=== PATIENT | female | born 1980 | race American Indian/Alaskan Native ===

== ENCOUNTER 2016-09-21 21:12 | Emergency (ER) | payer MEDICAID ==
[2016-09-22 05:52] VITALS: BP 130/88
== END 2016-09-22 07:00 | disposition left against medical advice (07) ==
LOC: ED 21:12
DX: R51 Headache (principal); Z53.21 Procedure and treatment not carried out due to patient leaving prior to being seen by health care provider

== ENCOUNTER 2017-11-14 04:12 | Inpatient (IN) | payer MEDICAID ==
[2017-11-14] MEDS ORDERED: BRETHINE IVP PRN (05:44)
[2017-11-14] MEDS ORDERED: BRETHINE SUB-Q PRN (05:44)
[2017-11-14] MEDS ORDERED: XYLOCAINE 2% INFILTRATI ONE (05:44)
[2017-11-14] MEDS ORDERED: ePHEDrine SULFATE IV PRN (05:44)
[2017-11-14] MEDS ORDERED: NARCAN 0.4 MG/1 ML IV PRN (05:44)
--- NOTE | 2017-11-14 05:51 | History and Physical Report ---
History of Present Illness Date of examination: 11/14/17 Date of admission: 11/14/17 04:28 Chief complaint: contractions History of present illness: Pt is a 37 year old -British female JOSE A 12/05/17 at 37w0d who presents with regular contractions since 2 am and advanced cervical dilation of 7 cm. She denies vaginal bleeding. She experienced SROM at 441am. She has had care at [facility] since 20 wks complicated by late entry to care, h/o 34 wk delivery on weekly progesterone injections, rubella non -immune status, and headache though pt declined Neuro referral. She is GBS negative. Past History Past Medical History: no pertinent history Past Surgical History: D&C (for retained placenta ) Family/Genetic History: cancer Social history: no significant social history - Obstetrical History Expected Date of Delivery: 12/05/17 Actual Gestation: 37 Week(s) 0 Day(s) : 4 Para: 3 Hx # Term Pregnancies: 2 Number of Pregnancies: 1 Spontaneous Abortions: 0 Induced : 0 Number of Living Children: 3 Medications and Allergies Allergies Allergy/AdvReac Type Severity Reaction Status Date / Time No Known Allergies Allergy Verified 07/17/13 12:36 Home Medications Medication Instructions Recorded Confirmed Last Taken Type Doxycycline [Vibramycin] 100 mg PO BID #14 capsule 07/30/13 09/27/15 Unknown Rx Lidocain2.5%/Prilocai2.5% [Emla] 5 gm TP ONCE #1 tube 09/27/15 Unknown Rx Review of Systems All systems: negative - Physical Exam Breasts: Positive: deferred Cardiovascular: Regular rate Lungs: Positive: Clear to auscultation Abdomen: Positive: soft (gravid ) Genitourinary (Female): Positive: normal external genitalia Uterus: Positive: enlarged (gravid ) Extremities: Positive: normal - Obstetrical FHR: category 2 Uterine Contraction Monitor Mode: External Cervical Dilatation: 10 Cervical Effacement Percentage: 100 station: +2 Uterine Contraction Pattern: Regular Uterine Tone Measurement Phase: Resting Uterine Contraction Intensity: Strong/Firm Results All other labs normal. Assessment and Plan A: IUP at 37w0d Active labor H/o labor AMA GBS negative P: Admit to labor and delivery. Routine intrapartum care.
--- NOTE | 2017-11-14 05:53 | Event Note ---
Date: 11/14/17 Pt is refusing any IV fluids, IV meds or labs to be drawn. She will not allow IM pitocin.
--- NOTE | 2017-11-14 05:56 | Procedure Note ---
OB Delivery Note - Delivery Date of Delivery: 11/14/17 Surgeon: ROMAN SAN Estimated blood loss: other (400 mL) - Vaginal Delivery presentation: vertex Delivery position: OA Intrapartum events: precipitous labor- <3hr, mult.variable deceleratio Delivery induction: none Delivery monitor: external FHT, external uterine Route of delivery: Delivery placenta: spontaneous Delivery cord: 3 umbilical vessels Episiotomy: none Delivery laceration: none Anesthesia: none Delivery comments: Pt progressed to complete/complete/+2 and pushed to deliver a viable male over intact perineum via under no anesthesia. Head delivered, quickly followed by shoulders and body. placed on maternal abdomen and bulb suctioned. Delayed cord clamp. then handed to nurse in attendance. Placenta delivered spontaneously (3VC, intact). Vagina and perineum explored. No lacerations noted. Pt refused pitocin. EBL 400 mL. - Infant A at 1 minute: 8 at 5 minutes: 9 Gender: Male (2913g (6lb 7oz) @ 0457 am)
[2017-11-14] MEDS ORDERED: MOTRIN PO PRN (06:00)
[2017-11-14] MEDS ORDERED: LACTATED RINGERS 1,000 ML IV SCH (06:00)
[2017-11-14] MEDS ORDERED: PITOCin/NS 20 UNIT/1000ML DRIP 20 UNITS/1,000 ML BAG IV SCH ×2 (06:00→11:00)
[2017-11-14] MEDS ORDERED: PITOCin/NS 30 UNIT/500ML 30 UNITS/500 ML BAG IV SCH (06:00)
[2017-11-14] MEDS ORDERED: NORCO 5/325 PO PRN (10:30)
[2017-11-14] MEDS ORDERED: TUCKS PAD TP PRN (10:30)
[2017-11-14] MEDS ORDERED: TYLENOL PO PRN (10:30)
[2017-11-14] MEDS ORDERED: DERMOPLAST TP PRN (10:30)
[2017-11-14] MEDS ORDERED: LANSINOH TP PRN ×2 (10:30→11:00)
[2017-11-14] MEDS ORDERED: BENADRYL PO PRN (10:30)
[2017-11-14] MEDS ORDERED: SODIUM CHLORIDE FLUSH SYRINGE 10 ML IV PRN (11:00)
[2017-11-14] MEDS ORDERED: DULCOLAX PR PRN (11:00)
[2017-11-14] MEDS ORDERED: ZOFRAN IV PRN (11:00)
[2017-11-14] MEDS ORDERED: PHENERGAN PO PRN (11:00)
[2017-11-14] MEDS ORDERED: PHENERGAN PR PRN (11:00)
[2017-11-14] MEDS: MOTRIN PO SCH ×2 (12:33→18:56)
[2017-11-14] MEDS ORDERED: MILK OF MAGNESIA PO PRN (22:00)
[2017-11-14] MEDS ORDERED: MINERAL OIL PO PRN (22:00)
[2017-11-15] MEDS: MOTRIN PO SCH ×4 (00:08→23:59)
[2017-11-15] MEDS ORDERED: BOOSTRIX IM ONE (06:00)
--- NOTE | 2017-11-15 08:22 | Progress Note ---
Assessment and Plan A/P PPD1 doing well declines IV and labs continue PP orders Subjective - Subjective Date of service: 11/15/17 Principal diagnosis: Patient reports: appetite normal, voiding normally, pain well controlled, flatus , ambulating normally : doing well Objective - Vital Signs Latest vital signs: Vital Signs Temp Pulse Resp BP Pulse Ox 11/15/17 05:54 18 11/15/17 00:37 98.2 F 69 18 95/52 96 11/15/17 00:08 18 11/14/17 20:39 18 11/14/17 20:18 98.4 F 18 11/14/17 20:12 98.4 F 77 18 102/66 98 11/14/17 16:23 98.3 F 71 18 108/67 99 Intake and Output 11/14/17 11/15/17 11/15/17 23:59 07:59 15:59 Intake Total 240 Balance 240 Intake: Oral 240 Other: Total, Intake Amount 240 - Exam Breasts: Present: normal Cardiovascular: Present: Regular rate, Normal S1 Lungs: Present: Clear to auscultation, Normal air movement Abdomen: Present: normal appearance, normal bowel sounds. Absent: distention, tenderness, guarding Vulva: both: normal Uterus: Present: normal, firm, fundal height below umbilicus. Absent: bogginess , tenderness Extremities: Present: normal Deep Tendon Reflex Grade: Normal +2
--- NOTE | 2017-11-15 09:02 | Progress Note ---
Assessment and Plan A: PP Day 1 P: D/C in am Subjective - Subjective Date of service: 11/15/17 Principal diagnosis: Patient reports: appetite normal, voiding normally, pain well controlled, flatus , ambulating normally : doing well Objective - Vital Signs Latest vital signs: Vital Signs Temp Pulse Resp BP Pulse Ox 11/15/17 05:54 18 11/15/17 00:37 98.2 F 69 18 95/52 96 11/15/17 00:08 18 11/14/17 20:39 18 11/14/17 20:18 98.4 F 18 11/14/17 20:12 98.4 F 77 18 102/66 98 11/14/17 16:23 98.3 F 71 18 108/67 99 Intake and Output 11/14/17 11/15/17 11/15/17 22:59 06:59 14:59 Intake Total 240 Balance 240 Intake: Oral 240 Other: Total, Intake Amount 240 - Exam Breasts: Present: deferred Abdomen: Present: normal appearance Uterus: Present: normal, firm, fundal height below umbilicus. Absent: bogginess , tenderness Extremities: Present: normal
[2017-11-15] MEDS: PRENATAL VITAMIN PO SCH (10:15)
[2017-11-15] MEDS ORDERED: M-M-R II VACCINE SUB-Q ONE (11:00)
--- NOTE | 2017-11-15 22:35 | Discharge Summary ---
Providers - Providers Date of Admission: 11/14/17 04:28 Date of discharge: 11/16/17 Attending physician: ROMAN SAN Primary care physician: ROMAN SAN Hospitalization Reason for admission: active labor Delivery: Episiotomy: none Laceration: none Other procedures: none complications: none Discharge diagnosis: IUP at term delivered baby: male Hospital course: Patient delivered viable infant. She refused all labs and blood draws. She did well. discharged home. stable. vss. Condition at discharge: Good Disposition: DC-01 TO HOME OR SELFCARE Plan - Provider Discharge Summary Additional instructions: [] Smoking cessation referral if applicable(refer to patient education folder for contact #) [] Refer to [facility] Booklet Call your doctor immediately for: * Fever > 100.5 * Heavy vaginal bleeding ( >1 pad per hour) * Severe persistent headache * Shortness of breath * Reddened, hot, painful area to leg or breast * Drainage or odor from incision. * Keep incision clean and dry at all times and follow doctor's instructions regarding bathing/showering - Follow up plan Follow up: ROMAN SAN MD [Primary Care Provider] - 7 Days
[2017-11-16] MEDS: MOTRIN PO SCH (05:37)
--- NOTE | 2017-11-16 07:37 | Progress Note ---
Assessment and Plan A/P PPD2 doing well declines IV and labs d/c home Subjective - Subjective Date of service: 11/16/17 Principal diagnosis: Patient reports: appetite normal, voiding normally, pain well controlled, flatus , ambulating normally : doing well Objective - Vital Signs Latest vital signs: Vital Signs Temp Pulse Resp BP Pulse Ox 11/16/17 05:37 18 11/15/17 23:59 18 11/15/17 16:05 69 99 11/15/17 16:04 98.4 F 75 18 109/67 99 11/15/17 12:06 80 100 11/15/17 12:05 98.3 F 81 18 105/63 100 11/15/17 08:34 85 99 Intake and Output 11/15/17 11/15/17 11/16/17 15:59 23:59 07:59 Intake Total 720 Output Total 3 Balance 717 Intake: Oral 720 Output: Urine 3 Void 3 Other: Total, Intake Amount 720 Total, Output Amount 3 # Voids Void 3 - Exam Breasts: Present: normal Cardiovascular: Present: Regular rate, Normal S1 Lungs: Present: Clear to auscultation, Normal air movement Abdomen: Present: normal appearance, soft, normal bowel sounds. Absent: distention, tenderness, guarding Vulva: both: normal Uterus: Present: normal, firm, fundal height below umbilicus. Absent: bogginess , tenderness Extremities: Present: normal Deep Tendon Reflex Grade: Normal +2
[2017-11-16 10:00] VITALS: BP 108/78
[2017-11-16] MEDS: PRENATAL VITAMIN PO SCH (11:02)
== END 2017-11-16 15:15 | disposition home or self-care (01) | DRG 775 ==
LOC: TRG 04:12 → LD 04:28 → OB 09:59
PROVIDERS: ADMIT Obstetrics & Gynecology; ATTEND Obstetrics & Gynecology
PROC: 10E0XZZ Delivery of Products of Conception, External Approach (ICD-10-PCS; principal; 2017-11-14)
DX: O62.3 Precipitate labor (principal); O76 Abnormality in fetal heart rate and rhythm complicating labor and delivery; Z3A.37 37 weeks gestation of pregnancy; Z37.0 Single live birth
CPT/HCPCS: 99211; A6250; G0463; J2590

== ENCOUNTER 2018-12-27 19:15 | Emergency (ER) | payer MEDICAID ==
--- NOTE | 2018-12-27 19:39 | Emergency Department Report ---
Blank Doc - Documentation Documentation: This is a 38-year-old female that presents with Chest pain and left arm tingling and numbness sensation. This initial assessment/diagnostic orders/clinical plan/treatment(s) is/are subject to change based on patient's health status, clinical progression and re- assessment by fellow clinical providers in the ED. Further treatment and workup at subsequent clinical providers discretion. Patient/guardians urged not to elope from the ED MAIN ED for further evaluation and treatment 2- labs 3- EKG 4- CXR
[2018-12-27 20:26] LABS: Basophils % (Auto) 0.7 % (0.0-1.8); Eosinophils % (Auto) 0.4 % (0.0-4.3); Hematocrit 41.3 % (30.3-42.9); Hemoglobin 13.5 gm/dl (10.1-14.3); Lymphocytes # (Auto) 1.3 K/mm3 (1.2-5.4); Lymphocytes % (Auto) 18.4 % (13.4-35.0); Mean Corpuscular HGB Conc 33 % (30-34); Mean Corpuscular Volume 85 fl (79-97); Monocytes # (Auto) 0.2 K/mm3 (0.0-0.8); Monocytes % (Auto) 3.2 % (0.0-7.3); Platelet Count 276 K/mm3 (140-440); Red Blood Count 4.84 M/mm3 (3.65-5.03); Red Cell Distribution Width 13.7 % (13.2-15.2)
[2018-12-27 20:36] LABS: INR 0.94 (0.87-1.13)
[2018-12-27 20:37] LABS: Partial Thromboplastin Time 39.9 Sec. (24.2-36.6)
[2018-12-27 20:53] LABS: Alanine Aminotransferase 23 units/L (7-56); Albumin 4.3 g/dL (3.9-5); BUN/Creatinine Ratio 23; Blood Urea Nitrogen 9 mg/dL (7-17); Calcium 9.3 mg/dL (8.4-10.2); Hemolysis Index 4
[2018-12-27] MEDS ORDERED: REGLAN IV ONE (22:13)
[2018-12-27] MEDS ORDERED: XYLOCAINE TOPICAL 4% TP ONE (22:13)
[2018-12-27] MEDS ORDERED: MAGNESIUM SULFATE 2GM/50ML 2 GM/50 ML BAG IV ONE (22:13)
[2018-12-27] MEDS ORDERED: SOLU-Medrol IV ONE (22:13)
--- NOTE | 2018-12-27 22:13 | Emergency Department Report ---
<CARISA CRAIG - Last Filed: 12/28/18 01:48> ED General Adult HPI - General Chief complaint: Chest Pain Stated complaint: CHEST PAIN NUMBNESS TINGLING NAUSEA WEAKNESS Time Seen by Provider: 12/27/18 19:37 Source: patient, RN notes reviewed Mode of arrival: Ambulatory Limitations: No Limitations - History of Present Illness Initial comments: This is a 38-year-old female. The patient is not known to this provider previously. The patient endorses a history of seasonal allergies. The patient presents to the emergency room with multiple complaints. The patient's first complaint is headache. The headache is frontal. The headache is present since 7:00 this morning. The headache is intermittent. It is described as achy and dull. The headache does not reach maximal intensity within 1 hour of onset. It is not the most intense headache of her life. There is no vomiting. There is no loss of vision. There is no sore throat. Patient reports getting frequent headaches. She reports getting enough sleep each nigh t, at least 6-7 hours. She reports having her vision checked within the past couple months. She reports being compliant with corrective contact lenses. She does not report excessive cell phone use. Her next complaint is bilateral upper extremity tingling and numbness, most prominent on the left upper extremity. The tingling is intermittent. It starts from the mid bicep and radiates distally. It is intermittent. It does not have exacerbating or relieving factors. The tingling is also present on the right upper extremity. It is intermittent. It is less pronounced than on the left upper extremity. There is no midline neck pain. There is no saddle anesthesia. There is no bladder or bowel retention or incontinence. The patient also endorses bilateral nontraumatic shoulder pressure and pain. The pain is achy, increases with palpation, range of motion, and it decreases with rest. she also endorses resolved chest pressure. The chest pressure was at 8:00 in the morning. It lasted for a few minutes. It did not radiate to the back, arms and neck. There is no vomiting. There is no diaphoresis. There is no exertional shortness of breath. The patient denies recent aspirin use. The patient denies DVT, pulmonary embolus risk factors. -: Gradual, Sudden Location: head, chest, left, right, upper extremity Radiation: extremity Severity scale (0 -10): 5 Quality: aching, other Consistency: other Improves with: other Worsens with: other - Related Data Previous Rx's Medication Instructions Recorded Last Taken Type DOXYCYCLINE Hyclate [Vibramycin] 100 mg PO BID #14 capsule 07/30/13 Unknown Rx Lidocain2.5%/Prilocai2.5% [Emla] 5 gm TP ONCE #1 tube 09/27/15 Unknown Rx Ibuprofen [Motrin] 600 mg PO Q8H PRN #30 tablet 11/16/17 Unknown Rx Acetaminophen [Non-Aspirin Extra 500 mg PO Q6HR PRN #30 tablet 12/28/18 Unknown Rx Strength] Butalb/Acetaminophen/Caffeine 1 cap PO Q6HR PRN #15 cap 12/28/18 Unknown Rx [Fioricet 50-300-40 mg CAP] Fluticasone [Flonase] 1 spray NS QDAY #1 bottle 12/28/18 Unknown Rx Ibuprofen [Motrin] 600 mg PO Q8H PRN #30 tablet 12/28/18 Unknown Rx Pseudoephedrine ER [Sudafed 12 Hr] 120 mg PO BID PRN #20 tablet.er 12/28/18 Unknown Rx Allergies Allergy/AdvReac Type Severity Reaction Status Date / Time No Known Allergies Allergy Verified 07/17/13 12:36 ED Review of Systems Constitutional: malaise. denies: fever Eyes: denies: eye discharge ENT: denies: epistaxis Respiratory: denies: cough Cardiovascular: chest pain Gastrointestinal: denies: vomiting Genitourinary: denies: dysuria Musculoskeletal: arthralgia, myalgia Skin: denies: lesions Neurological: weakness, paresthesias Psychiatric: anxiety ED Past Medical Hx - Past Medical History Hx Hypertension: No Hx Heart Attack/AMI: No Hx Congestive Heart Failure: No Hx Diabetes: No Hx Deep Vein Thrombosis: No Hx Pulmonary Embolism: No Hx GERD: No Hx Liver Disease: No Hx Renal Disease: No Hx of Cancer: No Hx Sickle Cell Disease: No Hx Arthritis: No Hx Headaches / Migraines: Yes Hx Seizures: No Hx Kidney Stones: No Hx Psychiatric Treatment: No Hx Asthma: No Hx COPD: No Hx Dementia: No Hx HIV: No - Surgical History Hx Coronary Stent: No Hx Open Heart Surgery: No Hx Pacemaker: No Hx Internal Defibrillator: No Hx Cholecystectomy: No Hx Appendectomy: No Hx Breast Surgery: No Additional Surgical History: D/C- 2012 - Social History Smoking Status: Never Smoker Substance Use Type: Alcohol - Medications Home Medications: Home Medications Medication Instructions Recorded Confirmed Last Taken Type DOXYCYCLINE Hyclate [Vibramycin] 100 mg PO BID #14 capsule 07/30/13 11/14/17 Unknown Rx Lidocain2.5%/Prilocai2.5% [Emla] 5 gm TP ONCE #1 tube 09/27/15 11/14/17 Unknown Rx Ibuprofen [Motrin] 600 mg PO Q8H PRN #30 tablet 11/16/17 Unknown Rx Acetaminophen [Non-Aspirin Extra 500 mg PO Q6HR PRN #30 tablet 12/28/18 Unknown Rx Strength] Butalb/Acetaminophen/Caffeine 1 cap PO Q6HR PRN #15 cap 12/28/18 Unknown Rx [Fioricet 50-300-40 mg CAP] Fluticasone [Flonase] 1 spray NS QDAY #1 bottle 12/28/18 Unknown Rx Ibuprofen [Motrin] 600 mg PO Q8H PRN #30 tablet 12/28/18 Unknown Rx Pseudoephedrine ER [Sudafed 12 Hr] 120 mg PO BID PRN #20 tablet.er 12/28/18 Unknown Rx ED Physical Exam - General Limitations: No Limitations General appearance: alert, in no apparent distress - Head Head exam: Present: atraumatic, normocephalic - Eye Eye exam: Present: normal appearance, PERRL, EOMI, other (visual acuity intact to finger counting, color perception, reading at a close distance). Absent: nystagmus - ENT ENT exam: Present: normal exam, normal orophraynx, mucous membranes moist, normal external ear exam - Neck Neck exam: Present: normal inspection, full ROM. Absent: tenderness, meningismus - Respiratory Respiratory exam: Present: normal lung sounds bilaterally. Absent: respiratory distress - Cardiovascular Cardiovascular Exam: Present: regular rate, normal rhythm, normal heart sounds. Absent: bradycardia, tachycardia, irregular rhythm, systolic murmur, diastolic murmur, rubs, gallop - GI/Abdominal GI/Abdominal exam: Present: soft. Absent: distended, tenderness, guarding, rebound, rigid, pulsatile mass - Extremities Exam Extremities exam: Present: normal inspection, full ROM, other (2+ pulses noted in the bilateral upper, lower extremities. Compartments soft. No long bony tenderness. The pelvis is stable.). Absent: pedal edema, joint swelling, calf tenderness - Back Exam Back exam: Present: normal inspection, full ROM. Absent: tenderness, CVA tenderness (R), CVA tenderness (L), paraspinal tenderness, vertebral tenderness - Neurological Exam Neurological exam: Present: alert, oriented X3, normal gait (there is no pass pointing. There is normal [id number]. There is a negative pronator drift.), other (Extraocular movements intact. Tongue midline. No facial droop. Facial sensation intact to light touch in the V1, V2, V3 distribution bilaterally. 5 and 5 strength in 4 extremities.. Sensation is intact to light touch in 4 extremities.). Absent: motor sensory deficit - Psychiatric Psychiatric exam: Present: anxious - Skin Skin exam: Present: warm, dry, intact, normal color. Absent: rash ED Course - Reevaluation(s) Reevaluation #1: 12/28/18 00:40 Differential diagnosis, including but not limited to: GERD, gastritis, hiatal hernia, pneumonia, peripheral neuropathy, multiple sclerosis, intracranial mass lesion, fibromyalgia, mixed connective tissue disorder, acute coronary syndrome, conversion disorder, myositis Assessment and plan: 38-year-old female with multiple complaints. In terms of the patient's chest discomfort, troponin is negative 2, not tachycardic, not hypoxic, low risk by well's criteria, low risk by heart score, low risk by PAWEL score, perc negative Has equal pulses in the upper, lower extremities, and has an unremarkable x-ray of the chest. Aortic disease is unlikely. Nonspecific T wave pseudo normalization is appreciated in V2 and V3, may be related to lead placement, may be related to juvenile T-wave inversion versus high left ventricular voltage. The patient may follow-up with an outpatient anesthesiology crna for her incidental EKG abnormalities, and for her complaint of chest pain. In terms of the patient's headache, the patient has a Juan Diego Coma Scale of 15, with an 9 score of 0. She walks with a steady gait. She has no focal motor or sensory deficits on my examination. Her history and physical was not consistent with subarachnoid hemorrhage, ischemic stroke, hemorrhagic stroke, or cervical cord compression. Her headache will be treated supportively and symptomatically. We highly doubt significant intracranial lesion, but we will obtain noncontrast CT scan of the brain to exclude large structural lesion. Patient is currently resting comfortably, and her stretcher, and in no acute distress. The patient is medically suitable to follow-up with an outpatient neurology s pecialist, primary care doctor and/or anesthesiology crna for her numerous complaints. Does not have clinical evidence of fracture, dislocation, myositis, compartment syndrome. Has full range of motion in her upper and lower extremities. Reevaluation #2: 12/28/18 01:48 Patient resting comfortably, and in no acute distress. CT scan interpretation is pending. Care is transferred to the overnight physician, Dr. Jami Dooley, to follow up on CT scan brain interpretation, and if negative, as anticipated, discharged to follow-up. ED Medical Decision Making - Lab Data Result diagrams: 12/27/18 20:02 12/27/18 20:02 Vital Signs 12/27/18 12/27/18 12/27/18 19:27 19:28 19:35 Temperature 98.0 F 98.0 F Pulse Rate 86 85 88 Respiratory 18 18 Rate Blood Pressure 140/89 140/89 Blood Pressure [Left] O2 Sat by Pulse 99 99 99 Oximetry 12/27/18 12/27/18 12/27/18 20:30 20:51 21:00 Temperature Pulse Rate 69 77 Respiratory 16 20 Rate Blood Pressure 141/94 134/86 Blood Pressure [Left] O2 Sat by Pulse 100 99 99 Oximetry 12/27/18 12/27/18 12/27/18 21:15 21:30 21:45 Temperature Pulse Rate 77 79 72 Respiratory 15 20 19 Rate Blood Pressure 141/94 142/88 142/88 Blood Pressure [Left] O2 Sat by Pulse 98 99 Oximetry 12/27/18 12/27/18 12/27/18 22:00 22:53 23:00 Temperature Pulse Rate 94 H 86 83 Respiratory 15 15 22 Rate Blood Pressure 143/98 147/92 132/80 Blood Pressure [Left] O2 Sat by Pulse 99 99 98 Oximetry 12/27/18 12/27/18 12/27/18 23:15 23:28 23:30 Temperature Pulse Rate 66 67 72 Respiratory 16 12 18 Rate Blood Pressure 132/80 132/80 Blood Pressure 132/80 [Left] O2 Sat by Pulse 99 99 99 Oximetry 12/27/18 23:45 Temperature Pulse Rate 71 Respiratory 16 Rate Blood Pressure 114/62 Blood Pressure [Left] O2 Sat by Pulse 99 Oximetry Lab Results 12/27/18 12/27/18 12/27/18 Range/Units 20:02 20:02 20:02 WBC 6.8 (4.5-11.0) K/mm3 RBC 4.84 (3.65-5.03) M/mm3 Hgb 13.5 (10.1-14.3) gm/dl Hct 41.3 (30.3-42.9) % MCV 85 (79-97) fl MCH 28 (28-32) pg MCHC 33 (30-34) % RDW 13.7 (13.2-15.2) % Plt Count 276 (140-440) K/mm3 Lymph % (Auto) 18.4 (13.4-35.0) % [place] % (Auto) 3.2 (0.0-7.3) % Eos % (Auto) 0.4 (0.0-4.3) % Baso % (Auto) 0.7 (0.0-1.8) % Lymph # 1.3 (1.2-5.4) K/mm3 [place] # 0.2 (0.0-0.8) K/mm3 Eos # 0.0 (0.0-0.4) K/mm3 Baso # 0.0 (0.0-0.1) K/mm3 Seg Neutrophils % 77.3 H (40.0-70.0) % Seg Neutrophils # 5.3 (1.8-7.7) K/mm3 PT 13.1 (12.2-14.9) Sec. INR 0.94 (0.87-1.13) APTT 39.9 H (24.2-36.6) Sec. Sodium 141 (137-145) mmol/L Potassium 4.1 (3.6-5.0) mmol/L Chloride 104.8 (98-107) mmol/L Carbon Dioxide 23 (22-30) mmol/L Anion Gap 17 mmol/L BUN 9 (7-17) mg/dL Creatinine 0.4 L (0.7-1.2) mg/dL Estimated GFR > 60 ml/min BUN/Creatinine Ratio 23 % Glucose 105 H (65-100) mg/dL Calcium 9.3 (8.4-10.2) mg/dL Total Bilirubin 0.60 (0.1-1.2) mg/dL AST 18 (5-40) units/L ALT 23 (7-56) units/L Alkaline Phosphatase 88 (35-129) units/L Troponin T < 0.010 (0.00-0.029) ng/mL Total Protein 7.9 (6.3-8.2) g/dL Albumin 4.3 (3.9-5) g/dL Albumin/Globulin Ratio 1.2 % HCG, Qual (Negative) 12/27/18 12/27/18 Range/Units 20:02 22:32 WBC (4.5-11.0) K/mm3 RBC (3.65-5.03) M/mm3 Hgb (10.1-14.3) gm/dl Hct (30.3-42.9) % MCV (79-97) fl MCH (28-32) pg MCHC (30-34) % RDW (13.2-15.2) % Plt Count (140-440) K/mm3 Lymph % (Auto) (13.4-35.0) % [place] % (Auto) (0.0-7.3) % Eos % (Auto) (0.0-4.3) % Baso % (Auto) (0.0-1.8) % Lymph # (1.2-5.4) K/mm3 [place] # (0.0-0.8) K/mm3 Eos # (0.0-0.4) K/mm3 Baso # (0.0-0.1) K/mm3 Seg Neutrophils % (40.0-70.0) % Seg Neutrophils # (1.8-7.7) K/mm3 PT (12.2-14.9) Sec. INR (0.87-1.13) APTT (24.2-36.6) Sec. Sodium (137-145) mmol/L Potassium (3.6-5.0) mmol/L Chloride (98-107) mmol/L Carbon Dioxide (22-30) mmol/L Anion Gap mmol/L BUN (7-17) mg/dL Creatinine (0.7-1.2) mg/dL Estimated GFR ml/min BUN/Creatinine Ratio % Glucose (65-100) mg/dL Calcium (8.4-10.2) mg/dL Total Bilirubin (0.1-1.2) mg/dL AST (5-40) units/L ALT (7-56) units/L Alkaline Phosphatase (35-129) units/L Troponin T < 0.010 (0.00-0.029) ng/mL Total Protein (6.3-8.2) g/dL Albumin (3.9-5) g/dL Albumin/Globulin Ratio % HCG, Qual Negative (Negative) - EKG Data 12/28/18 00:43 EKG #1 shows a normal sinus rhythm, 97 bpm, high left ventricular voltage, normal axis, QTC prolonged, T-wave inversion V2, abnormal EKG, not consistent with ST elevation myocardial infarction. Repeat EKG shows pseudo-normalized T-wave V2 and V3, persistent high left ventricular voltage, QTC remains prolonged, this is an abnormal EKG, although not consistent with ST elevation myocardial infarction. - Radiology Data Radiology results: pending, report reviewed, image reviewed X-ray of the chest is interpreted as negative for acute disease ED Disposition Clinical Impression: Headache, Paresthesia and pain of both upper extremities, History of chest pain, Sinusitis Disposition: DC-01 TO HOME OR SELFCARE Is pt being admited?: No Does the pt Need Aspirin: No Condition: Good Instructions: Acute Headache (ED), Sinusitis (ED), Paresthesia (ED) Additional Instructions: Rest, avoid heavy lifting, and avoid strenuous physical activities. Take the pain medications, headache medication as needed/directed. Follow up with a anesthesiology crna for chest discomfort within the next 3-5 days. Local cardiology practices include the following groups: [facility], [facility] Please follow up with the primary care doctor or neurology specialist for complaint of headache and upper extremity tingling within the next 2-3 weeks. Local neurology doctors include the following physicians: Ana Maria Simms, [place] Please return to the emergency room right away with new pain, worsened pain, migration of pain, projectile vomiting, change in mental status, confusion, inability to tolerate liquid feeds, new, worsening or different symptoms not present on the initial ER evaluation. Prescriptions: Butalb/Acetaminophen/Caffeine [Fioricet 50-300-40 mg CAP] 1 cap PO Q6HR PRN #15 cap PRN Reason: Headache Fluticasone [Flonase] 1 spray NS QDAY #1 bottle Ibuprofen [Motrin] 600 mg PO Q8H PRN #30 tablet PRN Reason: Pain Acetaminophen [Non-Aspirin Extra Strength] 500 mg PO Q6HR PRN #30 tablet PRN Reason: Pain , Severe (7-10) Pseudoephedrine ER [Sudafed 12 Hr] 120 mg PO BID PRN #20 tablet.er PRN Reason: Nasal Congestion Referrals: FRANDY BENITEZ MD [Staff Physician] - 3-5 Days INEZ VILLAGRAN MD [Staff Physician] - 3-5 Days [facility], [Provider Group] - 3-5 Days [facility] [Provider Group] - 3-5 Days [facility] [Provider Group] - 3-5 Days <FLORIAN DOOLEY - Last Filed: 12/28/18 02:37> ED Review of Systems ROS: Stated complaint: CHEST PAIN NUMBNESS TINGLING NAUSEA WEAKNESS Other details as noted in HPI ED Course Vital Signs 12/27/18 12/27/18 12/27/18 19:27 19:28 19:35 Temperature 98.0 F 98.0 F Pulse Rate 86 85 88 Respiratory 18 18 Rate Blood Pressure 140/89 140/89 Blood Pressure [Left] O2 Sat by Pulse 99 99 99 Oximetry 12/27/18 12/27/18 12/27/18 20:30 20:51 21:00 Temperature Pulse Rate 69 77 Respiratory 16 20 Rate Blood Pressure 141/94 134/86 Blood Pressure [Left] O2 Sat by Pulse 100 99 99 Oximetry 12/27/18 12/27/18 12/27/18 21:15 21:30 21:45 Temperature Pulse Rate 77 79 72 Respiratory 15 20 19 Rate Blood Pressure 141/94 142/88 142/88 Blood Pressure [Left] O2 Sat by Pulse 98 99 Oximetry 12/27/18 12/27/18 12/27/18 22:00 22:53 23:00 Temperature Pulse Rate 94 H 86 83 Respiratory 15 15 22 Rate Blood Pressure 143/98 147/92 132/80 Blood Pressure [Left] O2 Sat by Pulse 99 99 98 Oximetry 12/27/18 12/27/18 12/27/18 23:15 23:28 23:30 Temperature Pulse Rate 66 67 72 Respiratory 16 12 18 Rate Blood Pressure 132/80 132/80 Blood Pressure 132/80 [Left] O2 Sat by Pulse 99 99 99 Oximetry 12/27/18 12/27/18 12/27/18 23:44 23:45 23:54 Temperature Pulse Rate 76 71 68 Respiratory 15 16 12 Rate Blood Pressure 114/62 114/62 114/62 Blood Pressure [Left] O2 Sat by Pulse 100 99 99 Oximetry 12/28/18 12/28/18 12/28/18 00:00 00:15 01:07 Temperature Pulse Rate 70 69 69 Respiratory 19 16 Rate Blood Pressure 113/60 113/60 128/69 Blood Pressure [Left] O2 Sat by Pulse 99 99 97 Oximetry 12/28/18 12/28/18 12/28/18 01:15 01:30 01:45 Temperature Pulse Rate 66 61 65 Respiratory 18 19 20 Rate Blood Pressure 128/69 112/65 113/60 Blood Pressure [Left] O2 Sat by Pulse 98 98 97 Oximetry 12/28/18 02:01 Temperature Pulse Rate 63 Respiratory 18 Rate Blood Pressure Blood Pressure [Left] O2 Sat by Pulse 98 Oximetry ED Medical Decision Making - Lab Data Result diagrams: 12/27/18 20:02 12/27/18 20:02 - Radiology Data PROCEDURE: CT HEAD/BRAIN WO CON TECHNIQUE: Computerized tomography of the head was performed without contrast material. CT DOSE LENGTH PRODUCT: mGycm HISTORY: headache COMPARISONS: None . FINDINGS: Skull and scalp: Normal . Paranasal sinuses: There is fluid in the paranasal sinuses. . Ventricles and subarachnoid spaces: Normal . Cerebrum: No evidence of hemorrhage, acute infarction or mass . Cerebellum and brainstem: No evidence of hemorrhage, acute infarction or mass . Vasculature: Normal . IMPRESSION: There is sinusitis. There is no intracranial hemorrhage, edema, mass, mass effect or midline shift. . - Medical Decision Making ct shows some mild sinus dz,, decongestants and inhaled nasal steroid prescribed. Critical care attestation.: If time is entered above; I have spent that time in minutes in the direct care of this critically ill patient, excluding procedure time. ED Disposition Time of Disposition: 02:37
--- NOTE | 2018-12-27 22:55 | XRay Report ---
PROCEDURE: XR CHEST ROUTINE 2V TECHNIQUE: PA and lateral chest radiographs were obtained. HISTORY: Chest Pain COMPARISONS: None. FINDINGS: Heart: Upper limits normal. Mediastinum/Vessels: Normal. Lungs/Pleural space: Normal. Bony thorax: No acute osseous abnormality. IMPRESSION: Heart size upper limits normal. Otherwise, no acute finding.. This document is electronically signed by Jazmin Salvador MD., Dec 27 2018 10:54:04 PM ET
[2018-12-28] MEDS ORDERED: FIORICET PO ONE (00:34)
--- NOTE | 2018-12-28 02:09 | Cat Scan Report ---
PROCEDURE: CT HEAD/BRAIN WO CON TECHNIQUE: Computerized tomography of the head was performed without contrast material. CT DOSE LENGTH PRODUCT: mGycm HISTORY: headache COMPARISONS: None . FINDINGS: Skull and scalp: Normal . Paranasal sinuses: There is fluid in the paranasal sinuses. . Ventricles and subarachnoid spaces: Normal . Cerebrum: No evidence of hemorrhage, acute infarction or mass . Cerebellum and brainstem: No evidence of hemorrhage, acute infarction or mass . Vasculature: Normal . IMPRESSION: There is sinusitis. There is no intracranial hemorrhage, edema, mass, mass effect or mid line shift. . This document is electronically signed by Cecilio Benavidez MD., Dec 28 2018 02:08:00 AM ET
[2018-12-28 03:06] VITALS: BP 101/58
== END 2018-12-28 03:15 | disposition home or self-care (01) ==
LOC: ED 19:15
DX: J32.9 Chronic sinusitis, unspecified (principal); G43.909 Migraine, unspecified, not intractable, without status migrainosus; R20.2 Paresthesia of skin; R20.0 Anesthesia of skin; R07.89 Other chest pain
CPT/HCPCS: 36415; 70450; 71046; 80053; 82550; 84484; 84703; 85025; 85610; 85730; 93005; 93010; 96365; 96375; 99285; J2765; J2930; J3475

== ENCOUNTER 2019-10-04 16:20 | Emergency (ER) | payer MEDICAID ==
[2019-10-04 17:12] VITALS: BP 144/94
--- NOTE | 2019-10-04 17:14 | Event Note ---
ED Screening Note Date of service: 10/04/19 Time: 17:10 ED Screening Note: 39 y.o. F. that presents to the ER with vaginal bleeding, abdominal cramps, and lightheadedness. Reports spotting started yesterday and progressed with wipes today. LMP 08/20/19, A0 Currently not wearing a menstrual pad. This initial assessment/diagnostic orders/clinical plan/treatment(s) is/are subject to change based on patients health status, clinical progression and re- assessment by fellow clinical providers in the ED. Further treatment and workup at subsequent clinical providers discretion. Patient/guardian urged not to elope from the ED as their condition may be serious if not clinically assessed and managed. Initial orders include: Labs
[2019-10-04 18:13] LABS: Basophils # (Auto) 0.1 K/mm3 (0.0-0.1); Basophils % (Auto) 0.6 % (0.0-1.8); Eosinophils # (Auto) 0.4 K/mm3 (0.0-0.4); Eosinophils % (Auto) 4.2 % (0.0-4.3); Hematocrit 38.1 % (30.3-42.9); Hemoglobin 12.7 gm/dl (10.1-14.3); Lymphocytes # (Auto) 2.8 K/mm3 (1.2-5.4); Lymphocytes % (Auto) 29.2 % (13.4-35.0); Mean Corpuscular HGB Conc 33 % (30-34); Mean Corpuscular Volume 86 fl (79-97); Monocytes # (Auto) 0.6 K/mm3 (0.0-0.8); Monocytes % (Auto) 6.3 % (0.0-7.3); Platelet Count 256 K/mm3 (140-440); Red Blood Count 4.46 M/mm3 (3.65-5.03); Red Cell Distribution Width 14.3 % (13.2-15.2)
[2019-10-04 19:38] LABS: Bilirubin,Urine NEG (Negative); Blood,Urine MOD (Negative); Color,Urine Yellow (Yellow); Protein,Urine <15 mg/dL mg/dL (Negative); Urobilinogen,Urine < 2.0 mg/dL (<2.0)
--- NOTE | 2019-10-04 20:42 | Emergency Department Report ---
HPI - General Chief Complaint: Abdominal Pain Time Seen by Provider: 10/04/19 17:09 - HPI HPI: Room 37 The patient is a 39-year-old female present with a chief complaint of vaginal bleeding and cramping. Patient states she is in her first trimester and yesterday noted vaginal spotting. Today the patient had lower abdominal cramping in addition to heavier bleeding but did not use maxipads. Patient denies any recent trauma or intercourse. Patient states she felt lightheaded with her cramping. The patient does not have an PLANE TENDER yet for this ED Past Medical Hx - Past Medical History Previous Medical History?: Yes Hx Headaches / Migraines: Yes - Surgical History Past Surgical History?: Yes Additional Surgical History: D/C- 2012 - Family History Family history: no significant - Social History Smoking Status: Never Smoker Substance Use Type: Alcohol (Occasional) - Medications Home Medications: Home Medications Medication Instructions Recorded Confirmed Last Taken Type DOXYCYCLINE Hyclate [Vibramycin] 100 mg PO BID #14 capsule 07/30/13 11/14/17 Unknown Rx Lidocain2.5%/Prilocai2.5% [Emla] 5 gm TP ONCE #1 tube 09/27/15 11/14/17 Unknown Rx Ibuprofen [Motrin] 600 mg PO Q8H PRN #30 tablet 11/16/17 Unknown Rx Acetaminophen [Non-Aspirin Extra 500 mg PO Q6HR PRN #30 tablet 12/28/18 Unknown Rx Strength] Butalb/Acetaminophen/Caffeine 1 cap PO Q6HR PRN #15 cap 12/28/18 Unknown Rx [Fioricet 50-300-40 mg CAP] Fluticasone [Flonase] 1 spray NS QDAY #1 bottle 12/28/18 Unknown Rx Ibuprofen [Motrin] 600 mg PO Q8H PRN #30 tablet 12/28/18 Unknown Rx Pseudoephedrine ER [Sudafed 12 Hr] 120 mg PO BID PRN #20 tablet.er 12/28/18 Unknown Rx ED Review of Systems ROS: Stated complaint: 8WKS, BLEEDING,CRAMPING Other details as noted in HPI Constitutional: no symptoms reported Respiratory: no symptoms reported Endocrine: no symptoms reported Gastrointestinal: abdominal pain Genitourinary: abnormal menses Physical Exam - Physical Exam Vital Signs: Vital Signs 10/04/19 17:00 Temperature 99.0 F Pulse Rate 82 Respiratory 20 Rate Blood Pressure 144/94 O2 Sat by Pulse 100 Oximetry Physical Exam: GENERAL: The patient is well-developed well-nourished female lying on stretcher not appearing to be in acute distress. [] HEENT: Normocephalic. Atraumatic. Extraocular motions are intact. Patient has moist mucous membranes. NECK: Supple. Trachea midline CHEST/LUNGS: Clear to auscultation. There is no respiratory distress noted. HEART/CARDIOVASCULAR: Regular. There is no tachycardia. There is no gallop rub or murmur. ABDOMEN: Abdomen is soft, nontender. Patient has normal bowel sounds. SKIN: There is no rash. There is no edema. There is no diaphoresis. NEURO: The patient is awake, alert, and oriented. The patient is cooperative. The patient has normal speech MUSCULOSKELETAL: There is no evidence of acute injury. ED Course Vital Signs 10/04/19 17:00 Temperature 99.0 F Pulse Rate 82 Respiratory 20 Rate Blood Pressure 144/94 O2 Sat by Pulse 100 Oximetry ED Medical Decision Making - Lab Data Result diagrams: 10/04/19 17:20 Laboratory Tests 10/04/19 10/04/19 10/04/19 17:20 17:20 17:20 WBC 9.7 RBC 4.46 Hgb 12.7 Hct 38.1 MCV 86 MCH 29 MCHC 33 RDW 14.3 Plt Count 256 Lymph % (Auto) 29.2 [place] % (Auto) 6.3 Eos % (Auto) 4.2 Baso % (Auto) 0.6 Lymph # 2.8 [place] # 0.6 Eos # 0.4 Baso # 0.1 Seg Neutrophils % 59.7 Seg Neutrophils # 5.8 HCG, Qual Positive HCG, Quant 1355 H Urine Color Urine Turbidity Urine pH Ur Specific [place] Urine Protein Urine Glucose (UA) Urine Ketones Urine Blood Urine Nitrite Urine Bilirubin Urine Urobilinogen Ur Leukocyte Esterase Urine WBC (Auto) Urine RBC (Auto) U Epithel Cells (Auto) Blood Type 10/04/19 10/04/19 17:20 19:21 WBC RBC Hgb Hct MCV MCH MCHC RDW Plt Count Lymph % (Auto) [place] % (Auto) Eos % (Auto) Baso % (Auto) Lymph # [place] # Eos # Baso # Seg Neutrophils % Seg Neutrophils # HCG, Qual HCG, Quant Urine Color Yellow Urine Turbidity Clear Urine pH 7.0 Ur Specific [place] 1.015 Urine Protein <15 mg/dl Urine Glucose (UA) Neg Urine Ketones Neg Urine Blood Mod Urine Nitrite Neg Urine Bilirubin Neg Urine Urobilinogen < 2.0 Ur Leukocyte Esterase Neg Urine WBC (Auto) 1.0 Urine RBC (Auto) 2.0 U Epithel Cells (Auto) 1.0 Blood Type O POSITIVE - Radiology Data Radiology results: report reviewed (Pelvic ultrasound), image reviewed (Pelvic ultrasound) Findings [facility] [address] [place] [address] Ultrasound Report Signed Patient: CLIFTON MACIAS MR#: [id number] [birth year] Acct:[id number] Age/Sex: 39 / F ADM Date: 10/04/19 Loc: ED Attending Dr: Ordering Physician: KAITLYNN VERDUZCO MD Date of Service: 10/04/19 P rocedure(s): US transvaginal Accession Number(s): [id number] cc: KAITLYNN VERDUZCO MD TRANSABDOMINAL AND TRANSVAGINAL OB PELVIC ULTRASOUND INDICATION / CLINICAL INFORMATION: Vaginal bleeding and abdominal cramping. COMPARISON: None available. FINDINGS: Transabdominal: The uterus measures 7.8 x 5.4 x 5.6 cm. There is a small intrauterine gestational sac with a yolk sac. The left ovary measures 2.5 x 1.9 x 1.4 cm and contains a 1.5 cm simple cyst. The right ovary measures 2.6 x 2.1 x 2.8 cm. There is normal blood flow to both ovaries on Doppler exam. Transvaginal: There is an early intrauterine gestational sac with a yolk sac. Sac size is 5 weeks 3 days. There is a probable pole measuring 5 weeks 5 days. No cardiac activity is identified. There is no evidence of implantation hemorrhage. There is a 1.8 cm simple left ovarian cyst. There is a 2.2 cm complex right ovarian cyst with peripheral blood flow. I see no evidence of an extraovarian mass or free fluid. There is a subcentimeter fibroid in the posterior uterine body. IMPRESSION: 1. Early intrauterine measuring approximately 5 weeks 5 days. There is a probable pole without cardiac activity. A follow-up ultrasound in 7-10 days may be helpful in better documenting viability. 2. 2.2 cm corpus luteal cyst in the right ovary. 1.8 cm simple follicular cyst in the left ovary. 3. Subcentimeter uterine fibroid. Signer Name: Pancho Monaco MD Signed: 10/04/2019 9:00 PM Workstation Name: [id number] Transcribed By: RT Dictated By: Pancho Monaco MD Electronically Authenticated By: Pancho Monaco MD Signed Date/Time: 10/04/192099 DD/ 54 TD/TT: - Differential Diagnosis Threatened , incomplete , spontaneous Critical care attestation.: If time is entered above; I have spent that time in minutes in the direct care of this critically ill patient, excluding procedure time. ED Disposition Clinical Impression: Threatened Disposition: DC-01 TO HOME OR SELFCARE Is pt being admited?: No Does the pt Need Aspirin: No Condition: Stable Instructions: Abdominal Pain (ED), Threatened Miscarriage (ED) Additional Instructions: Return to the emergency department should you develop worsening symptoms, inability to tolerate food or liquids, high fever or any other concerns Referrals: PRIMARY CARE, [Primary Care Provider] - 3-5 Days JAE WARNER MD [Staff Physician] - 3-5 Days (Dr Warner is an PLANE TENDER. Please follow-up with him for further evaluation) Time of Disposition: 21:16
--- NOTE | 2019-10-04 21:04 | Ultrasound Report ---
TRANSABDOMINAL AND TRANSVAGINAL OB PELVIC ULTRASOUND INDICATION / CLINICAL INFORMATION: Vaginal bleeding and abdominal cramping. COMPARISON: None available. FINDINGS: Transabdominal: The uterus measures 7.8 x 5.4 x 5.6 cm. There is a small intrauterine gestational sac with a yolk sac. The left ovary measures 2.5 x 1.9 x 1.4 cm and contains a 1.5 cm simple cyst. The r ight ovary measures 2.6 x 2.1 x 2.8 cm. There is normal blood flow to both ovaries on Doppler exam. Transvaginal: There is an early intrauterine gestational sac with a yolk sac. Sac size is 5 weeks 3 d ays. There is a probable pole measuring 5 weeks 5 days. No cardiac activity is identified. Ther e is no evidence of implantation hemorrhage. There is a 1.8 cm simple left ovarian cyst. There is a 2 .2 cm complex right ovarian cyst with peripheral blood flow. I see no evidence of an extraovarian mas s or free fluid. There is a subcentimeter fibroid in the posterior uterine body. IMPRESSION: 1. Early intrauterine measuring approximately 5 weeks 5 days. There is a probable sandi e without cardiac activity. A follow-up ultrasound in 7-10 days may be helpful in better documenting viability. 2. 2.2 cm corpus luteal cyst in the right ovary. 1.8 cm simple follicular cyst in the left ovary. 3. Subcentimeter uterine fibroid. Signer Name: Pancho Monaco MD Signed: 10/04/2019 9:00 PM Workstation Name: [id number]
== END 2019-10-04 21:22 | disposition home or self-care (01) ==
LOC: ED 16:20
DX: O20.0 Threatened abortion (principal); O26.891 Other specified pregnancy related conditions, first trimester; G43.909 Migraine, unspecified, not intractable, without status migrainosus; Z79.899 Other long term (current) drug therapy; Z3A.01 Less than 8 weeks gestation of pregnancy
CPT/HCPCS: 36415; 76801; 76817; 76830; 81001; 84702; 84703; 85025; 86900; 86901

== ENCOUNTER 2019-10-06 04:00 | Emergency (ER) | payer MEDICAID ==
[2019-10-06 04:09] VITALS: BP 145/94
[2019-10-06 05:52] LABS: Basophils # (Auto) 0.1 K/mm3 (0.0-0.1); Basophils % (Auto) 0.7 % (0.0-1.8); Eosinophils # (Auto) 0.4 K/mm3 (0.0-0.4); Eosinophils % (Auto) 4.3 % (0.0-4.3); Hematocrit 35.7 % (30.3-42.9); Hemoglobin 11.9 gm/dl (10.1-14.3); Lymphocytes # (Auto) 3.6 K/mm3 (1.2-5.4); Lymphocytes % (Auto) 37.8 % (13.4-35.0); Mean Corpuscular HGB Conc 33 % (30-34); Mean Corpuscular Volume 86 fl (79-97); Monocytes # (Auto) 0.7 K/mm3 (0.0-0.8); Platelet Count 255 K/mm3 (140-440); Red Blood Count 4.16 M/mm3 (3.65-5.03); Red Cell Distribution Width 13.9 % (13.2-15.2)
[2019-10-06 10:00] LABS: Bacteria,Urine 1+ /HPF (Negative); Bilirubin,Urine NEG (Negative); Blood,Urine MOD (Negative); Color,Urine Yellow (Yellow); Mucus,Urine 2+ /HPF; Protein,Urine <15 mg/dL mg/dL (Negative); Urobilinogen,Urine < 2.0 mg/dL (<2.0)
--- NOTE | 2019-10-06 10:37 | Emergency Department Report ---
ED HPI - General Chief complaint: Vaginal Bleeding Stated complaint: 5 WKS PREG,VAG BLEEDING AND CRAMPS Time Seen by Provider: 10/06/19 08:40 Source: patient Mode of arrival: Ambulatory Limitations: No Limitations - History of Present Illness Initial comments: This is a 39-year-old female nontoxic, well nourished in appearance, no acute signs of distress presents to the ED with c/o of vaginal bleeding xfew days. Stated goes by about 1 pad in 2 hours. Patient stated was seen a here yesterday and had a US and labs done but vaginal bleeding has increased. Patient denies any abdominal or pelvic pain. Patient denies any vaginal discharge or foul odor. Patient denies any nausea, vomiting, chest pain, shortness of breathe, fever, chills, headache, stiff neck, numbness, tingling. Patient denies any urinary symptoms. Patient denies any allergies or PMH. MD Complaint: vaginal bleeding -: days(s) Radiation: none Severity scale (0 -10): 0 Consistency: constant Improves with: none Worsens with: none Associated symptoms: denies other symptoms. denies: nausea/vomiting, vaginal bleeding, vaginal discharge, abdominal pain, dysuria, headache, vision changes, malaise, dysparuenia, rash, seizure, shortness of breath, syncope, weakness Vaginal bleeding: heavy :: Yes Number of weeks : 5 Pre- care: none - Related Data Previous Rx's Medication Instructions Recorded Last Taken Type DOXYCYCLINE Hyclate [Vibramycin] 100 mg PO BID #14 capsule 07/30/13 Unknown Rx Lidocain2.5%/Prilocai2.5% [Emla] 5 gm TP ONCE #1 tube 09/27/15 Unknown Rx Ibuprofen [Motrin] 600 mg PO Q8H PRN #30 tablet 11/16/17 Unknown Rx Acetaminophen [Non-Aspirin Extra 500 mg PO Q6HR PRN #30 tablet 12/28/18 Unknown Rx Strength] Butalb/Acetaminophen/Caffeine 1 cap PO Q6HR PRN #15 cap 12/28/18 Unknown Rx [Fioricet 50-300-40 mg CAP] Fluticasone [Flonase] 1 spray NS QDAY #1 bottle 12/28/18 Unknown Rx Ibuprofen [Motrin] 600 mg PO Q8H PRN #30 tablet 12/28/18 Unknown Rx Pseudoephedrine ER [Sudafed 12 Hr] 120 mg PO BID PRN #20 tablet.er 12/28/18 Unknown Rx Allergies Allergy/AdvReac Type Severity Reaction Status Date / Time No Known Allergies Allergy Verified 07/17/13 12:36 ED Review of Systems ROS: Stated complaint: 5 WKS PREG,VAG BLEEDING AND CRAMPS Other details as noted in HPI Constitutional: denies: chills, fever Eyes: denies: eye pain, eye discharge, vision change ENT: denies: ear pain, throat pain Respiratory: denies: cough, shortness of breath, wheezing Cardiovascular: denies: chest pain, palpitations Endocrine: no symptoms reported Gastrointestinal: denies: abdominal pain, nausea, diarrhea Genitourinary: abnormal menses. denies: urgency, dysuria, discharge Musculoskeletal: denies: back pain, joint swelling, arthralgia Skin: denies: rash, lesions Neurological: denies: headache, weakness, paresthesias Psychiatric: denies: anxiety, depression Hematological/Lymphatic: denies: easy bleeding, easy bruising ED Past Medical Hx - Past Medical History Previous Medical History?: Yes Hx Hypertension: No Hx Heart Attack/AMI: No Hx Congestive Heart Failure: No Hx Diabetes: No Hx Deep Vein Thrombosis: No Hx Pulmonary Embolism: No Hx GERD: No Hx Liver Disease: No Hx Renal Disease: No Hx Sickle Cell Disease: No Hx Arthritis: No Hx Headaches / Migraines: Yes Hx Seizures: No Hx Kidney Stones: No Hx Psychiatric Treatment: No Hx Asthma: No Hx COPD: No Hx Dementia: No Hx HIV: No - Surgical History Past Surgical History?: Yes Hx Coronary Stent: No Hx Open Heart Surgery: No Hx Pacemaker: No Hx Internal Defibrillator: No Hx Cholecystectomy: No Hx Appendectomy: No Hx Breast Surgery: No Additional Surgical History: D/C- 2012 - Social History Smoking Status: Never Smoker Substance Use Type: None - Medications Home Medications: Home Medications Medication Instructions Recorded Confirmed Last Taken Type DOXYCYCLINE Hyclate [Vibramycin] 100 mg PO BID #14 capsule 07/30/13 11/14/17 Unknown Rx Lidocain2.5%/Prilocai2.5% [Emla] 5 gm TP ONCE #1 tube 09/27/15 11/14/17 Unknown Rx Ibuprofen [Motrin] 600 mg PO Q8H PRN #30 tablet 11/16/17 Unknown Rx Acetaminophen [Non-Aspirin Extra 500 mg PO Q6HR PRN #30 tablet 12/28/18 Unknown Rx Strength] Butalb/Acetaminophen/Caffeine 1 cap PO Q6HR PRN #15 cap 12/28/18 Unknown Rx [Fioricet 50-300-40 mg CAP] Fluticasone [Flonase] 1 spray NS QDAY #1 bottle 12/28/18 Unknown Rx Ibuprofen [Motrin] 600 mg PO Q8H PRN #30 tablet 12/28/18 Unknown Rx Pseudoephedrine ER [Sudafed 12 Hr] 120 mg PO BID PRN #20 tablet.er 12/28/18 Unknown Rx ED Physical Exam - General Limitations: No Limitations General appearance: alert, in no apparent distress - Head Head exam: Present: atraumatic, normocephalic - Neck Neck exam: Present: normal inspection, full ROM. Absent: tenderness, meningismus, lymphadenopathy - GI/Abdominal GI/Abdominal exam: Present: soft, normal bowel sounds. Absent: distended, tenderness, guarding, rebound, rigid, diminished bowel sounds - External exam: Present: normal external exam, other (Options Advisor Sherine croze machine operator present during exam). Absent: erythema, swelling, lesions, lacerations, ecchymosis, bleeding Speculum exam: Present: other (Options Advisor Sherine croze machine operator present during exam). Absent: erythema, vaginal discharge, cervical discharge, vaginal bleeding, foreign body, tissue, laceration Bi-manual exam: Present: normal bi-manual exam, other (Options Advisor Sherine croze machine operator present during exam). Absent: cervical motion tendernes, adnexal tenderness, adnexal mass, uterine enlargement, uterine tenderness - Extremities Exam Extremities exam: Present: normal inspection, full ROM, normal capillary refill. Absent: tenderness - Back Exam Back exam: Present: normal inspection, full ROM. Absent: tenderness, CVA tenderness (R), CVA tenderness (L), muscle spasm, paraspinal tenderness, vertebral tenderness, rash noted - Neurological Exam Neurological exam: Present: alert, oriented X3, normal gait - Psychiatric Psychiatric exam: Present: normal affect, normal mood - Skin Skin exam: Present: warm, dry, intact, normal color. Absent: rash ED Course Vital Signs 10/06/19 10/06/19 04:03 08:56 Temperature 99.2 F Pulse Rate 85 Respiratory 18 18 Rate Blood Pressure 145/94 O2 Sat by Pulse 98 99 Oximetry - Reevaluation(s) Reevaluation #1: 10/06/19 10:36 Patient is speaking in full sentences with no signs of distress noted. ED Medical Decision Making - Lab Data Result diagrams: 10/06/19 05:26 - Medical Decision Making This is a 39-year-old female presents with spontaneous miscarriage. Patient is stable and was examined by me. When I did a pelvic exam I did not visualize any vaginal bleeding which patient did agree symptoms of vaginal bleeding has significantly decreased. Normal abdominal exam. US OB obtained and dictated by the radiologist yesterday. Ua obtained. Quantative serum test obtained and significant decreased since last visit. Patient notified of the US report with no questions noted by the patient. Patient was instructed f/u with ROCKET ENGINE COMPONENT MECHANIC in 3- 5 days. RH factor positive from last visit. Labs within normal limits. Patient was given strict precautions and education on ectopic . At time of discharge, the patient does not seem toxic or ill in appearance. No acute signs of distress noted. Patient agrees to discharge treatment plan of care. No further questions noted by the patient. Critical care attestation.: If time is entered above; I have spent that time in minutes in the direct care of this critically ill patient, excluding procedure time. ED Disposition Clinical Impression: Spontaneous miscarriage Disposition: DC-01 TO HOME OR SELFCARE Is pt being admited?: No Does the pt Need Aspirin: No Condition: Stable Instructions: Spontaneous Miscarriage (ED) Additional Instructions: Follow-up with a ROCKET ENGINE COMPONENT MECHANIC doctor in 3-5 days or if symptoms worsen and continue return to emergency room as soon as possible. Referrals: PRIMARY CAREMD [Primary Care Provider] - 3-5 Days VIKKI ZAMBRANO MD [Staff Physician] - 3-5 Days [facility] [Provider Group] - 3-5 Days Forms: Work/School Release Form(ED)
== END 2019-10-06 11:32 | disposition home or self-care (01) ==
LOC: ED 04:00
DX: O03.9 Complete or unspecified spontaneous abortion without complication (principal); O26.891 Other specified pregnancy related conditions, first trimester; R25.2 Cramp and spasm; N93.9 Abnormal uterine and vaginal bleeding, unspecified; G43.909 Migraine, unspecified, not intractable, without status migrainosus; Z79.899 Other long term (current) drug therapy
CPT/HCPCS: 36415; 81001; 84702; 85025; 99283

== ENCOUNTER 2021-07-06 14:04 | Emergency (ER) | payer MEDICAID ==
[2021-07-06 14:15] VITALS: BP 161/104
--- NOTE | 2021-07-06 15:13 | XRay Report ---
CHEST 2 VIEWS INDICATION: mild sob, tingling left arm. COMPARISON: 12/27/2018 FINDINGS: Support devices: None. Heart: Within normal limits. Lungs/pleura: No acute air space or interstitial disease. No pleural abnormality or pneumothorax. Additional findings: None. IMPRESSION: No acute findings. No significant change since 12/27/2018. Signer Name: Calixto Arroyo Jr, MD Signed: 07/06/2021 3:08 PM Workstation Name: [id number]
--- NOTE | 2021-07-06 15:55 | Emergency Department Report ---
ED General Adult HPI - General Chief complaint: Extremity Problem,Nontraumatic Stated complaint: TINGLING AND NUMBNESS OF (L) ARM X 1 WEEK Time Seen by Provider: 07/06/21 14:27 Source: patient Mode of arrival: Ambulatory Limitations: No Limitations - History of Present Illness Initial comments: Patient is a 41-year-old female presents emergency room with complaints of left- sided neck pain and left arm pain that began a week ago. She states that she f eels a tingling sensation down her left arm. She states also occasionally she has headaches and nausea. Patient denies any fall or injury. She denies any complete numbness. She denies any weakness, vision changes, vomiting, vision changes, speech disturbance, gait disturbance. Past medical history of hypertension but is not currently on any medication, she states that she does not see a primary care doctor. No allergies to medications. - Related Data Previous Rx's Medication Instructions Recorded Last Taken Type DOXYCYCLINE Hyclate [Vibramycin] 100 mg PO BID #14 capsule 07/30/13 Unknown Rx Lidocain2.5%/Prilocai2.5% [Emla] 5 gm TP ONCE #1 tube 09/27/15 Unknown Rx Ibuprofen [Motrin] 600 mg PO Q8H PRN #30 tablet 11/16/17 Unknown Rx Acetaminophen [Non-Aspirin Extra 500 mg PO Q6HR PRN #30 tablet 12/28/18 Unknown Rx Strength] Butalb/Acetaminophen/Caffeine 1 cap PO Q6HR PRN #15 cap 12/28/18 Unknown Rx [Fioricet 50-300-40 mg CAP] Fluticasone [Flonase] 1 spray NS QDAY #1 bottle 12/28/18 Unknown Rx Ibuprofen [Motrin] 600 mg PO Q8H PRN #30 tablet 12/28/18 Unknown Rx Pseudoephedrine ER [Sudafed 12 Hr] 120 mg PO BID PRN #20 tablet.er 12/28/18 Unknown Rx Naproxen 375 mg PO BID PRN #20 tablet 07/06/21 Unknown Rx Prednisone [predniSONE 10 mg 10 mg PO .TAPER #1 tab.ds.pk 07/06/21 Unknown Rx (6-Day Pack, 21 Tabs)] amLODIPine 5 mg PO DAILY #30 tab 07/06/21 Unknown Rx methOCARBAMOL [Robaxin TAB] 500 mg PO BID PRN #20 tab 07/06/21 Unknown Rx Allergies Allergy/AdvReac Type Severity Reaction Status Date / Time No Known Allergies Allergy Verified 07/17/13 12:36 ED Review of Systems ROS: Stated complaint: TINGLING AND NUMBNESS OF (L) ARM X 1 WEEK Other details as noted in HPI Comment: All other systems reviewed and negative ED Past Medical Hx - Past Medical History Previous Medical History?: Yes Hx Hypertension: No Hx Heart Attack/AMI: No Hx Congestive Heart Failure: No Hx Diabetes: No Hx Deep Vein Thrombosis: No Hx Pulmonary Embolism: No Hx GERD: No Hx Liver Disease: No Hx Renal Disease: No Hx Sickle Cell Disease: No Hx Arthritis: No Hx Headaches / Migraines: Yes Hx Seizures: No Hx Kidney Stones: No Hx Psychiatric Treatment: No Hx Asthma: No Hx COPD: No Hx Dementia: No Hx HIV: No - Surgical History Past Surgical History?: Yes Hx Coronary Stent: No Hx Open Heart Surgery: No Hx Pacemaker: No Hx Internal Defibrillator: No Hx Cholecystectomy: No Hx Appendectomy: No Hx Breast Surgery: No Additional Surgical History: D/C- 2012 - Social History Smoking Status: Never Smoker Substance Use Type: None - Medications Home Medications: Home Medications Medication Instructions Recorded Confirmed Last Taken Type DOXYCYCLINE Hyclate [Vibramycin] 100 mg PO BID #14 capsule 07/30/13 11/14/17 Unknown Rx Lidocain2.5%/Prilocai2.5% [Emla] 5 gm TP ONCE #1 tube 09/27/15 11/14/17 Unknown Rx Ibuprofen [Motrin] 600 mg PO Q8H PRN #30 tablet 11/16/17 Unknown Rx Acetaminophen [Non-Aspirin Extra 500 mg PO Q6HR PRN #30 tablet 12/28/18 Unknown Rx Strength] Butalb/Acetaminophen/Caffeine 1 cap PO Q6HR PRN #15 cap 12/28/18 Unknown Rx [Fioricet 50-300-40 mg CAP] Fluticasone [Flonase] 1 spray NS QDAY #1 bottle 12/28/18 Unknown Rx Ibuprofen [Motrin] 600 mg PO Q8H PRN #30 tablet 12/28/18 Unknown Rx Pseudoephedrine ER [Sudafed 12 Hr] 120 mg PO BID PRN #20 tablet.er 12/28/18 Unknown Rx Naproxen 375 mg PO BID PRN #20 tablet 07/06/21 Unknown Rx Prednisone [predniSONE 10 mg 10 mg PO .TAPER #1 tab.ds.pk 07/06/21 Unknown Rx (6-Day Pack, 21 Tabs)] amLODIPine 5 mg PO DAILY #30 tab 07/06/21 Unknown Rx methOCARBAMOL [Robaxin TAB] 500 mg PO BID PRN #20 tab 07/06/21 Unknown Rx ED Physical Exam - General Limitations: No Limitations General appearance: alert, in no apparent distress - Head Head exam: Present: atraumatic, normocephalic - Eye Eye exam: Present: normal appearance - ENT ENT exam: Present: mucous membranes moist - Neck Neck exam: Present: normal inspection, tenderness (mild left sided c-spine paraspinal ttp, no midline C-spine ttp, no step offs, no deformities), full ROM. Absent: meningismus - Respiratory Respiratory exam: Present: normal lung sounds bilaterally. Absent: respiratory distress, wheezes, rales, rhonchi, stridor, chest wall tenderness, accessory muscle use, decreased breath sounds, prolonged expiratory - Cardiovascular Cardiovascular Exam: Present: regular rate, normal rhythm, normal heart sounds. Absent: systolic murmur, diastolic murmur, rubs, gallop - Extremities Exam Extremities exam: Present: other (mild ttp to the left trapezius, no bony ttp of the LUE, FROM of the LUE, neurovascularly intact) - Neurological Exam Neurological exam: Present: alert, oriented X3, CN II-XII intact, normal gait. Absent: motor sensory deficit - Psychiatric Psychiatric exam: Present: normal affect, normal mood - Skin Skin exam: Present: warm, dry, intact ED Course Vital Signs 07/06/21 14:14 Temperature 98 F Pulse Rate 82 Respiratory 16 Rate Blood Pressure 161/104 [Right] O2 Sat by Pulse 100 Oximetry ED Medical Decision Making - Lab Data Result diagrams: 07/06/21 15:55 07/06/21 15:55 Lab Results 07/06/21 07/06/21 07/06/21 Range/Units 15:55 15:55 15:55 WBC 6.0 (4.5-11.0) K/mm3 RBC 4.95 (3.65-5.03) M/mm3 Hgb 13.4 (10.1-14.3) gm/dl Hct 42.0 (30.3-42.9) % MCV 85 (79-97) fl MCH 27 L (28-32) pg MCHC 32 (30-34) % RDW 15.1 (13.2-15.2) % Plt Count 245 (140-440) K/mm3 Lymph % (Auto) 47.7 H (13.4-35.0) % [place] % (Auto) 7.0 (0.0-7.3) % Eos % (Auto) 5.1 H (0.0-4.3) % Baso % (Auto) 1.1 (0.0-1.8) % Lymph # (Auto) 2.8 (1.2-5.4) K/mm3 [place] # (Auto) 0.4 (0.0-0.8) K/mm3 Eos # (Auto) 0.3 (0.0-0.4) K/mm3 Baso # (Auto) 0.1 (0.0-0.1) K/mm3 Seg Neutrophils % 39.1 L (40.0-70.0) % Seg Neutrophils # 2.3 (1.8-7.7) K/mm3 Sodium 137 (137-145) mmol/L Potassium 3.7 (3.6-5.0) mmol/L Chloride 100.8 (98-107) mmol/L Carbon Dioxide 24 (22-30) mmol/L Anion Gap 16 mmol/L BUN 9 (7-17) mg/dL Creatinine 0.5 L (0.6-1.2) mg/dL Estimated GFR > 60 ml/min BUN/Creatinine Ratio 18 % Glucose 80 (65-100) mg/dL Calcium 9.0 (8.4-10.2) mg/dL Total Bilirubin 0.50 (0.1-1.2) mg/dL AST 20 (5-40) units/L ALT 32 (7-56) units/L Alkaline Phosphatase 63 (35-129) units/L Troponin T < 0.010 (0.00-0.029) ng/mL Total Protein 8.0 (6.3-8.2) g/dL Albumin 4.5 (3.9-5) g/dL Albumin/Globulin Ratio 1.3 % HCG, Qual Negative (Negative) - EKG Data EKG shows normal: sinus rhythm, axis, intervals, QRS complexes, ST-T waves Rate: normal - Radiology Data Radiology results: report reviewed Ordering Physician: JAHAIRA IVEY Date of Service: 07/06/21 Procedure(s): XR chest routine 2V Accession Number(s): [id number] cc: JAHAIRA IVEY Fluoro Time In Minutes: CHEST 2 VIEWS INDICATION: mild sob, tingling left arm. COMPARISON: 12/27/2018 FINDINGS: Support devices: None. Heart: Within normal limits. Lungs/pleura: No acute air space or interstitial disease. No pleural abnormality or pneumothorax. Additional findings: None. IMPRESSION: No acute findings. No significant change since 12/27/2018. Signer Name: Calixto Arroyo Jr, MD Signed: 07/06/2021 3:08 PM Workstation Name: [id number] Transcribed By: TORY Dictated By: CALIXTO ARROYO JR, MD Electronically Authenticated By: CALIXTO ARROYO JR, MD Signed Date/Time: 07/06/21 1508 DD/ 150 TD/TT: - Medical Decision Making Patient is a 41-year-old female presents emergency room with complaints of left- sided neck pain and left arm pain that began a week ago. She states that she feels a tingling sensation down her left arm. She states also occasionally she has headaches and nausea. Patient denies any fall or injury. She denies any complete numbness. She denies any weakness, vision changes, vomiting, vision changes, speech disturbance, gait disturbance. Past medical history of hypertension but is not currently on any medication, she states that she does not see a primary care doctor. No allergies to medications. Vitals with elevated blood pressure, otherwise stable. on exam: mild left sided c-spine paraspinal ttp, no midline C-spine ttp, no step offs, no deformities, mild ttp to the left trapezius, no bony ttp of the LUE, FROM of the LUE, neurovascularly intact. CXR: No acute findings. No significant change since 12/27/2018. Labs are normal. Troponin is negative. EKG is within normal limits. Symptoms could likely be related to cervical radiculopathy and her elevated blood pressure. Patient given prescription for medication and started on low-dose amlodipine. Discussed the importance of follow-up. Advised patient Please take medication as prescribed. Follow-up with your primary care doctor. Follow-up with a forest resource specialist. Eat a low-sodium diet. Increase your water intake. Incorporate 30 to 60 minutes of daily exercise. Keep a blood pressure log. Return to emergency room for any new or worsening symptoms. Critical care attestation.: If time is entered above; I have spent that time in minutes in the direct care of this critically ill patient, excluding procedure time. ED Disposition Clinical Impression: Neck pain on left side, Left arm pain, Tingling of left upper extremity, Elevated blood pressure reading Disposition: 01 HOME / SELF CARE / HOMELESS Is pt being admited?: No Does the pt Need Aspirin: No Condition: Stable Instructions: Cervical Radiculopathy, Managing Your Hypertension Additional Instructions: Please take medication as prescribed. Follow-up with your primary care doctor. Follow-up with a forest resource specialist. Eat a low-sodium diet. Increase your water intake. Incorporate 30 to 60 minutes of daily exercise. Keep a blood pressure log. Return to emergency room for any new or worsening symptoms. Prescriptions: amLODIPine 5 mg PO DAILY #30 tab Naproxen 375 mg PO BID PRN #20 tablet PRN Reason: pain Prednisone [predniSONE 10 mg (6-Day Pack, 21 Tabs)] 10 mg PO .TAPER #1 tab.ds.pk methOCARBAMOL [Robaxin TAB] 500 mg PO BID PRN #20 tab PRN Reason: muscle spasm/pain Referrals: PRIMARY CARE, [Primary Care Provider] - KONSTANTIN YATES MD [Staff Physician] - 3-5 Days [facility] [Provider Group] - 3-5 Days [facility], [LAB/CONTRACT] - 3-5 Days [facility] [Outside] - 3-5 Days [facility] [Outside] - 3-5 Days ELIZABETH CORONA II, MD [Staff Physician] - 3-5 Days (forest resource specialist ) Time of Disposition: 17:01 Print Language: SINHALA
[2021-07-06 16:32] LABS: Basophils # (Auto) 0.1 K/mm3 (0.0-0.1); Basophils % (Auto) 1.1 % (0.0-1.8); Eosinophils # (Auto) 0.3 K/mm3 (0.0-0.4); Eosinophils % (Auto) 5.1 % (0.0-4.3); Hemoglobin 13.4 gm/dl (10.1-14.3); Lymphocytes # (Auto) 2.8 K/mm3 (1.2-5.4); Lymphocytes % (Auto) 47.7 % (13.4-35.0); Mean Corpuscular HGB Conc 32 % (30-34); Mean Corpuscular Volume 85 fl (79-97); Monocytes # (Auto) 0.4 K/mm3 (0.0-0.8); Platelet Count 245 K/mm3 (140-440); Red Blood Count 4.95 M/mm3 (3.65-5.03); Red Cell Distribution Width 15.1 % (13.2-15.2)
[2021-07-06 16:40] LABS: Alanine Aminotransferase 32 units/L (7-56); Albumin 4.5 g/dL (3.9-5); BUN/Creatinine Ratio 18; Blood Urea Nitrogen 9 mg/dL (7-17); Hemolysis Index 6
--- NOTE | 2021-07-08 10:19 | Electrocardiograph Report ---
[facility] Test Date: 2021-07-06 Test Time: 14:49:06 Pat Name: CLIFTON MACIAS Department: Room: Gender: F [employer] Set Up Operator: LINNETTE : 1980 Requested By: STACEY CORTES Order Number: [id number] Reading MD: Pawan Dc Measurements Intervals [place] Rate: 71 P: 26 GA: 168 QRS: 51 QRSD: 91 T: 48 QT: 399 QTc: 434 Interpretive Statements Sinus rhythm Consider left ventricular hypertrophy No previous ECG available for comparison Electronically Signed On 07-08-2021 10:19:08 EST by Pawan Dc
== END 2021-07-06 17:22 | disposition home or self-care (01) ==
LOC: ED 14:04
DX: M54.2 Cervicalgia (principal); M79.602 Pain in left arm; R20.2 Paresthesia of skin; R03.0 Elevated blood-pressure reading, without diagnosis of hypertension; G43.909 Migraine, unspecified, not intractable, without status migrainosus; Z98.890 Other specified postprocedural states
CPT/HCPCS: 36415; 71046; 80053; 84484; 84703; 85025; 93005; 99283

== ENCOUNTER 2021-09-08 07:55 | Emergency (ER) | payer MEDICAID ==
--- NOTE | 2021-09-08 08:40 | Emergency Department Report ---
ED Female HPI - General Chief complaint: Vaginal Bleeding Stated complaint: VAGINAL BLEEDING Time Seen by Provider: 09/08/21 08:36 Source: patient, family Mode of arrival: Ambulatory Limitations: No Limitations - History of Present Illness Initial comments: 41 YO AA COMES TO ER WITH VAG BLEEDING IN PREG LMP 1-2 MIS 1 HAS OB APPNT IN AM BLEEDING LIGHT; SHE IS CRAMPING NO VAG D/C NO BACK PAIN NO DYSURIA NO FEVER OR CHILLS AMBULATORY AND NON ILL APPEARING ON EXAM MD Complaint: vaginal bleeding -: Gradual, days(s) Severity: mild Quality: cramping Consistency: intermittent Improves with: none Worsens with: none Are you Now?: Yes Last Menstrual Period: 08/01/21 EDC: 05/08/22 Associated Symptoms: vaginal bleeding. denies: vaginal discharge - Related Data Sexually active: Yes : 6 Para: 4 A: 1 Previous Rx's Medication Instructions Recorded Last Taken Type DOXYCYCLINE Hyclate [Vibramycin] 100 mg PO BID #14 capsule 07/30/13 Unknown Rx Lidocain2.5%/Prilocai2.5% [Emla] 5 gm TP ONCE #1 tube 09/27/15 Unknown Rx Ibuprofen [Motrin] 600 mg PO Q8H PRN #30 tablet 11/16/17 Unknown Rx Acetaminophen [Non-Aspirin Extra 500 mg PO Q6HR PRN #30 tablet 12/28/18 Unknown Rx Strength] Butalb/Acetaminophen/Caffeine 1 cap PO Q6HR PRN #15 cap 12/28/18 Unknown Rx [Fioricet 50-300-40 mg CAP] Fluticasone [Flonase] 1 spray NS QDAY #1 bottle 12/28/18 Unknown Rx Ibuprofen [Motrin] 600 mg PO Q8H PRN #30 tablet 12/28/18 Unknown Rx Pseudoephedrine ER [Sudafed 12 Hr] 120 mg PO BID PRN #20 tablet.er 12/28/18 Unknown Rx Naproxen 375 mg PO BID PRN #20 tablet 07/06/21 Unknown Rx Prednisone [predniSONE 10 mg 10 mg PO .TAPER #1 tab.ds.pk 07/06/21 Unknown Rx (6-Day Pack, 21 Tabs)] amLODIPine 5 mg PO DAILY #30 tab 07/06/21 Unknown Rx methOCARBAMOL [Robaxin TAB] 500 mg PO BID PRN #20 tab 07/06/21 Unknown Rx Allergies Allergy/AdvReac Type Severity Reaction Status Date / Time No Known Allergies Allergy Verified 09/08/21 08:35 ED Review of Systems ROS: Stated complaint: VAGINAL BLEEDING Other details as noted in HPI Comment: All other systems reviewed and negative ED Past Medical Hx - Past Medical History Previous Medical History?: Yes Hx Hypertension: No Hx Heart Attack/AMI: No Hx Congestive Heart Failure: No Hx Diabetes: No Hx Deep Vein Thrombosis: No Hx Pulmonary Embolism: No Hx GERD: No Hx Liver Disease: No Hx Renal Disease: No Hx Sickle Cell Disease: No Hx Arthritis: No Hx Headaches / Migraines: Yes Hx Seizures: No Hx Kidney Stones: No Hx Psychiatric Treatment: No Hx Asthma: No Hx COPD: No Hx Dementia: No Hx HIV: No - Surgical History Past Surgical History?: No Hx Coronary Stent: No Hx Open Heart Surgery: No Hx Pacemaker: No Hx Internal Defibrillator: No Hx Cholecystectomy: No Hx Appendectomy: No Hx Breast Surgery: No Additional Surgical History: D/C- 2012 - Family History Family history: no significant - Social History Smoking Status: Never Smoker Substance Use Type: None - Medications Home Medications: Home Medications Medication Instructions Recorded Confirmed Last Taken Type DOXYCYCLINE Hyclate [Vibramycin] 100 mg PO BID #14 capsule 07/30/13 11/14/17 Unknown Rx Lidocain2.5%/Prilocai2.5% [Emla] 5 gm TP ONCE #1 tube 09/27/15 11/14/17 Unknown Rx Ibuprofen [Motrin] 600 mg PO Q8H PRN #30 tablet 11/16/17 Unknown Rx Acetaminophen [Non-Aspirin Extra 500 mg PO Q6HR PRN #30 tablet 12/28/18 Unknown Rx Strength] Butalb/Acetaminophen/Caffeine 1 cap PO Q6HR PRN #15 cap 12/28/18 Unknown Rx [Fioricet 50-300-40 mg CAP] Fluticasone [Flonase] 1 spray NS QDAY #1 bottle 12/28/18 Unknown Rx Ibuprofen [Motrin] 600 mg PO Q8H PRN #30 tablet 12/28/18 Unknown Rx Pseudoephedrine ER [Sudafed 12 Hr] 120 mg PO BID PRN #20 tablet.er 12/28/18 Unknown Rx Naproxen 375 mg PO BID PRN #20 tablet 07/06/21 Unknown Rx Prednisone [predniSONE 10 mg 10 mg PO .TAPER #1 tab.ds.pk 07/06/21 Unknown Rx (6-Day Pack, 21 Tabs)] amLODIPine 5 mg PO DAILY #30 tab 07/06/21 Unknown Rx methOCARBAMOL [Robaxin TAB] 500 mg PO BID PRN #20 tab 07/06/21 Unknown Rx ED Physical Exam - General Limitations: No Limitations General appearance: alert, in no apparent distress - Head Head exam: Present: atraumatic, normocephalic - Eye Eye exam: Present: normal appearance - ENT ENT exam: Present: mucous membranes moist - Neck Neck exam: Present: normal inspection - Respiratory Respiratory exam: Present: normal lung sounds bilaterally. Absent: respiratory distress - Cardiovascular Cardiovascular Exam: Present: regular rate, normal rhythm. Absent: systolic murmur, diastolic murmur, rubs, gallop - GI/Abdominal GI/Abdominal exam: Present: soft, normal bowel sounds - Extremities Exam Extremities exam: Present: normal inspection - Back Exam Back exam: Present: normal inspection - Neurological Exam Neurological exam: Present: alert, oriented X3 - Psychiatric Psychiatric exam: Present: normal affect, normal mood - Skin Skin exam: Present: warm, dry, intact, normal color. Absent: rash ED Medical Decision Making - Lab Data Result diagrams: 09/08/21 10:26 09/08/21 10:26 - Radiology Data Radiology results: report reviewed, image reviewed SEE REPORT - Medical Decision Making Laboratory Results - last 72 hr 09/08/21 09/08/21 09/08/21 10:26 10:26 10:26 WBC 6.7 RBC 4.79 Hgb 12.7 Hct 40.7 MCV 85 MCH 27 L MCHC 31 RDW 13.6 Plt Count 247 Lymph % (Auto) 27.6 [place] % (Auto) 5.8 Eos % (Auto) 3.0 Baso % (Auto) 0.5 Lymph # (Auto) 1.8 [place] # (Auto) 0.4 Eos # (Auto) 0.2 Baso # (Auto) 0.0 Seg Neutrophils % 63.1 Seg Neutrophils # 4.2 Sodium 139 Potassium 3.8 Chloride 104.4 Carbon Dioxide 22 Anion Gap 16 BUN 8 Creatinine 0.5 L Estimated GFR > 60 BUN/Creatinine Ratio 16 Glucose 82 Calcium 8.7 HCG, Quant 71.44 H Blood Type Ord Rhogam Gestat Weeks 09/08/21 10:26 WBC RBC Hgb Hct MCV MCH MCHC RDW Plt Count Lymph % (Auto) [place] % (Auto) Eos % (Auto) Baso % (Auto) Lymph # (Auto) [place] # (Auto) Eos # (Auto) Baso # (Auto) Seg Neutrophils % Seg Neutrophils # Sodium Potassium Chloride Carbon Dioxide Anion Gap BUN Creatinine Estimated GFR BUN/Creatinine Ratio Glucose Calcium HCG, Quant Blood Type O POSITIVE Ord Rhogam Gestat Weeks Rh pos VS NORMAL DOCUMENTED BY RN IN TRIAGE LAB NOTED RH POS US NOTED DISCUSSED FINDINGS WITH PT PT UNDERSTANDS SHE NEEDS SERIAL IMAGING TO MONITOR VIABILITY OF SHE HAS OB APT IN AM WHICH SHE WILL KEEP DC HOME WITH DC PLAN OF CARE INCLUDING DIET, ACTIVITY, MEDS, PELVIC REST, USE OF TYLENOL AND FOLLOW UP IN AM WITH HER OB - Differential Diagnosis RO AB Critical care attestation.: If time is entered above; I have spent that time in minutes in the direct care of this critically ill patient, excluding procedure time. ED Disposition Clinical Impression: Threatened Disposition: 01 HOME / SELF CARE / HOMELESS Is pt being admited?: No Does the pt Need Aspirin: No Condition: Stable Instructions: Threatened Miscarriage Additional Instructions: follow up obgyn in 24-48 hours for recheck PELVIC REST TYLENOL FOR PAIN Referrals: PRIMARY CAREMD [Primary Care Provider] - 3-5 Days ANA MARIA QUINTANILLA MD [Staff Physician] - 3-5 Days Time of Disposition: 12:01
--- NOTE | 2021-09-08 09:49 | Ultrasound Report ---
FIRSTTRIMESTER OBSTETRIC ULTRASOUND ULTRASOUND OB TRANSVAGINAL HISTORY: Vaginal bleeding during COMPARISON: None. TECHNIQUE: Routine transabdominal and transvaginal OB ultrasound performed. FINDINGS: Uterus: The uterus is anteverted and normal size measuring 8.6 x 4.2 x 4.7 cm. Gestational Sac: Not seen Yolk Sac: Not seen Fetus/Embryo: Not seen Endometrium: 9.8 mm. Ovaries: The right ovary measures 3.0 x 1.8 x 2.0 cm and contains a slightly complex cyst containing debris measuring 1.3 x 0.9 cm. This may represent a corpus luteum cyst. Please note an ectopic is not entirely excluded. The left ovary measures 1.9 x 1.6 x 1.8 cm and contains a 1.7 cm cyst. Additional findings: None. IMPRESSION No intrauterine is demonstrated. The endometrium measures 9.8 mm. Bilateral ovarian cysts as described. The right ovarian cyst appears slightly complex and may represe nt a corpus luteum cyst. Please note that an ectopic is not entirely excluded at this time. Please correlate with the patient's clinical presentation and consider follow-up. Signer Name: Calixto Arroyo Jr, MD Signed: 09/08/2021 9:44 AM Workstation Name: [id number]
[2021-09-08 11:10] LABS: Basophils % (Auto) 0.5 % (0.0-1.8); Eosinophils # (Auto) 0.2 K/mm3 (0.0-0.4); Hematocrit 40.7 % (30.3-42.9); Hemoglobin 12.7 gm/dl (10.1-14.3); Lymphocytes # (Auto) 1.8 K/mm3 (1.2-5.4); Lymphocytes % (Auto) 27.6 % (13.4-35.0); Mean Corpuscular HGB Conc 31 % (30-34); Mean Corpuscular Volume 85 fl (79-97); Monocytes # (Auto) 0.4 K/mm3 (0.0-0.8); Monocytes % (Auto) 5.8 % (0.0-7.3); Platelet Count 247 K/mm3 (140-440); Red Blood Count 4.79 M/mm3 (3.65-5.03); Red Cell Distribution Width 13.6 % (13.2-15.2)
[2021-09-08 11:35] LABS: Blood Urea Nitrogen 8 mg/dL (7-17); Calcium 8.7 mg/dL (8.4-10.2); Hemolysis Index 3
[2021-09-08 11:41] LABS: BUN/Creatinine Ratio 16
[2021-09-08 12:30] VITALS: BP 162/110
== END 2021-09-08 12:26 | disposition home or self-care (01) ==
LOC: ED 07:55
DX: O20.0 Threatened abortion (principal)
CPT/HCPCS: 36415; 76801; 76817; 80048; 84702; 85025; 86900; 86901; 99284